=== PATIENT | male | born 1975 | race American Indian/Alaskan Native ===

== ENCOUNTER 2020-11-12 08:39 | Emergency (ER) | payer OTHER ==
[2020-11-12 08:48] VITALS: BP 127/78
[2020-11-12] MEDS ORDERED: diazePAM 10 MG/2 ML SYRINGE IV ONE (10:28)
[2020-11-12] MEDS ORDERED: ONDANSETRON 4 MG/2 ML INJ IV ONE (10:28)
[2020-11-12] MEDS ORDERED: SODIUM CHLORIDE 0.9% 1000 ML 1,000 ML IV ONE (10:28)
--- NOTE | 2020-11-12 10:38 | Emergency Department Report ---
ED General Adult HPI - General Chief complaint: Nausea/Vomiting/Diarrhea Stated complaint: NAUSEA/VOMITING/DIZZY Time Seen by Provider: 11/12/20 09:39 Source: patient Mode of arrival: Wheelchair Limitations: No Limitations - History of Present Illness Initial comments: This is a pleasant 45-year-old male with past medical history of hypertension, hyperlipidemia and diabetes who presents to the emergency department the chief complaint of vertigo. Patient reports the vertigo started suddenly at 11:30 PM. He reports it is much worse when he lies flat but little bit better when he lays to the left. He reports any movement aggravates his symptoms. He reports he feels as if his equilibrium is off. Ports one episode nausea and vomiting last night. [facility] in his lower back that it causes pain and weakness in the left leg and numbness in the left foot. He states over the last few months he has noticed he started to be weak in the left arm as well. He states he has had vertigo in the past but had resolved spontaneously. This episode is much worse. He states anytime he opens his eyes he gets really nauseous. -: Sudden Severity scale (0 -10): 0 - Related Data Home Medications Medication Instructions Recorded Confirmed Last Taken lisinopriL [Zestril TAB] 10 mg PO DAILY 03/21/13 03/21/13 Unknown metFORMIN [Glucophage] 500 mg PO BID 03/21/13 03/21/13 Unknown Previous Rx's Medication Instructions Recorded Last Taken Type Meclizine [Antivert] 25 mg PO TID PRN #30 tablet 11/12/20 Unknown Rx Ondansetron [Zofran Odt] 4 mg PO Q8HR #30 tab.rapdis 11/12/20 Unknown Rx Allergies Allergy/AdvReac Type Severity Reaction Status Date / Time No Known Allergies Allergy Unverified 03/21/13 17:12 ED Review of Systems ROS: Stated complaint: NAUSEA/VOMITING/DIZZY Other details as noted in HPI Comment: All other systems reviewed and negative Constitutional: denies: chills, fever Eyes: denies: eye pain, eye discharge, vision change ENT: denies: ear pain, throat pain Respiratory: denies: cough, shortness of breath, wheezing Cardiovascular: denies: chest pain, palpitations Endocrine: no symptoms reported Gastrointestinal: denies: abdominal pain, nausea, diarrhea Genitourinary: denies: urgency, dysuria Musculoskeletal: denies: back pain, joint swelling, arthralgia Skin: denies: rash, lesions Neurological: as per HPI, weakness, abnormal gait, vertigo. denies: headache, paresthesias Psychiatric: denies: anxiety, depression Hematological/Lymphatic: denies: easy bleeding, easy bruising ED Past Medical Hx - Past Medical History Hx Hypertension: Yes Hx Heart Attack/AMI: Yes (1994) Hx Congestive Heart Failure: No Hx Diabetes: Yes Hx Arthritis: Yes Hx Kidney Stones: Yes Hx Asthma: No Hx COPD: No Additional medical history: Cholesterol, obesity - Surgical History Past Surgical History?: No Additional Surgical History: [place] teeth pulled - Social History Smoking Status: Never Smoker - Medications Home Medications: Home Medications Medication Instructions Recorded Confirmed Last Taken Type lisinopriL [Zestril TAB] 10 mg PO DAILY 03/21/13 03/21/13 Unknown History metFORMIN [Glucophage] 500 mg PO BID 03/21/13 03/21/13 Unknown History Meclizine [Antivert] 25 mg PO TID PRN #30 tablet 11/12/20 Unknown Rx Ondansetron [Zofran Odt] 4 mg PO Q8HR #30 tab.rapdis 11/12/20 Unknown Rx ED Physical Exam - General Limitations: No Limitations General appearance: alert, in distress - Head Head exam: Present: atraumatic, normocephalic, normal inspection - Eye Eye exam: Present: normal appearance, nystagmus (Horizontal nystagmus when looking to the left none to the right) Pupils: Present: normal accommodation - ENT ENT exam: Present: normal exam, normal orophraynx, mucous membranes moist - Neck Neck exam: Present: normal inspection, full ROM, other (No carotid bruits). Absent: tenderness, meningismus - Respiratory Respiratory exam: Present: normal lung sounds bilaterally. Absent: respiratory distress, wheezes, rales, rhonchi, stridor - Cardiovascular Cardiovascular Exam: Present: regular rate, normal rhythm, normal heart sounds. Absent: systolic murmur, diastolic murmur, rubs, gallop - GI/Abdominal GI/Abdominal exam: Present: soft, normal bowel sounds. Absent: distended, tenderness, guarding, rebound, rigid - Rectal Rectal exam: Present: deferred - Extremities Exam Extremities exam: Present: normal inspection, full ROM. Absent: tenderness, calf tenderness - Back Exam Back exam: Present: normal inspection, full ROM. Absent: tenderness, CVA tenderness (R), CVA tenderness (L) - Neurological Exam Neurological exam: Present: alert, oriented X3, abnormal gait, motor sensory deficit (There is decreased sensation to the left leg and left arm to light touch, there is weakness of the left leg and a slight drift to the left arm. There is ataxia with ojbeyq-bp-lbqx on the left. Unable to zbim-ia-zlxq on the left but dsep-pl-cdkn on the right and yuksfg-cq-cnxn on the right is maximo), other (Speech is normal) - Psychiatric Psychiatric exam: Present: normal affect, normal mood - Skin Skin exam: Present: warm, dry, intact, normal color. Absent: rash ED Course Vital Signs 11/12/20 08:42 Temperature 97.0 F L Pulse Rate 82 Respiratory 18 Rate Blood Pressure 127/78 [Left] O2 Sat by Pulse 97 Oximetry - Reevaluation(s) Reevaluation #1: 11/12/20 10:38 Patient symptoms are highly concerning for an old stroke with the new weakness in the left arm months ago and the worsening weakness in the left leg. The new onset of vertigo at 11:30 PM being the last known well time. Patient is not a TPA candidate. His NIH stroke scale is a 4. CT, CTA and stroke work-up was ordered. If negative patient will be admitted with aspirin and neurology consult. 11/12/20 10:39 - Consultations Consultation #1: 11/12/20 10:34 Spoke with attending who recommended calling code stroke since we are still in the 24-hour interventional window. 11/12/20 14:[address] Warren ([facility]) HE agreed to come evaluate the patient at bedside. Consultation #2: 11/12/20 16:17 Dr. Warren came down and evaluated the patient at bedside and thinks the patient is safe to go home with an outpatient MRI and work-up by neurology. He suspects that this may be more of a peripheral vertigo and recommended vestibular rehab and meclizine. ED Medical Decision Making - Lab Data Result diagrams: 11/12/20 12:40 11/12/20 12:40 Lab Results 11/12/20 11/12/20 11/12/20 Range/Units 12:40 12:40 12:40 WBC 8.2 (4.5-11.0) K/mm3 RBC 4.63 (3.65-5.03) M/mm3 Hgb 13.8 (11.8-15.2) gm/dl Hct 41.0 (35.5-45.6) % MCV 88 (84-94) fl MCH 30 (28-32) pg MCHC 34 (32-34) % RDW 15.9 H (13.2-15.2) % Plt Count 347 (140-440) K/mm3 Lymph % (Auto) 30.0 (13.4-35.0) % [place] % (Auto) 8.0 H (0.0-7.3) % Eos % (Auto) 1.1 (0.0-4.3) % Baso % (Auto) 0.5 (0.0-1.8) % Lymph # (Auto) 2.5 (1.2-5.4) K/mm3 [place] # (Auto) 0.7 (0.0-0.8) K/mm3 Eos # (Auto) 0.1 (0.0-0.4) K/mm3 Baso # (Auto) 0.0 (0.0-0.1) K/mm3 Seg Neutrophils % 60.4 (40.0-70.0) % Seg Neutrophils # 5.0 (1.8-7.7) K/mm3 PT 13.6 (12.2-14.9) Sec. INR 0.99 (0.87-1.13) APTT 32.6 (24.2-36.6) Sec. Thrombin Time 16.0 (15.1-19.6) Sec. Sodium 137 (137-145) mmol/L Potassium 4.3 (3.6-5.0) mmol/L Chloride 101.3 (98-107) mmol/L Carbon Dioxide 29 (22-30) mmol/L Anion Gap 11 mmol/L BUN 14 (9-20) mg/dL Creatinine 0.7 L (0.8-1.3) mg/dL Estimated GFR > 60 ml/min BUN/Creatinine Ratio 20 % Glucose 89 (75-100) mg/dL Calcium 9.1 (8.4-10.2) mg/dL Total Bilirubin 1.20 (0.1-1.2) mg/dL AST 15 (5-40) units/L ALT 7 (7-56) units/L Alkaline Phosphatase 80 (35-129) units/L Total Creatine Kinase (55-170) units/L CK-MB (CK-2) (0.0-4.0) ng/mL CK-MB (CK-2) Rel Index (0-4) Troponin T (0.00-0.029) ng/mL Total Protein 7.0 (6.3-8.2) g/dL Albumin 3.6 L (3.9-5) g/dL Albumin/Globulin Ratio 1.1 % /09/27 Range/Units 12:40 WBC (4.5-11.0) K/mm3 RBC (3.65-5.03) M/mm3 Hgb (11.8-15.2) gm/dl Hct (35.5-45.6) % MCV (84-94) fl MCH (28-32) pg MCHC (32-34) % RDW (13.2-15.2) % Plt Count (140-440) K/mm3 Lymph % (Auto) (13.4-35.0) % [place] % (Auto) (0.0-7.3) % Eos % (Auto) (0.0-4.3) % Baso % (Auto) (0.0-1.8) % Lymph # (Auto) (1.2-5.4) K/mm3 [place] # (Auto) (0.0-0.8) K/mm3 Eos # (Auto) (0.0-0.4) K/mm3 Baso # (Auto) (0.0-0.1) K/mm3 Seg Neutrophils % (40.0-70.0) % Seg Neutrophils # (1.8-7.7) K/mm3 PT (12.2-14.9) Sec. INR (0.87-1.13) APTT (24.2-36.6) Sec. Thrombin Time (15.1-19.6) Sec. Sodium (137-145) mmol/L Potassium (3.6-5.0) mmol/L Chloride (98-107) mmol/L Carbon Dioxide (22-30) mmol/L Anion Gap mmol/L BUN (9-20) mg/dL Creatinine (0.8-1.3) mg/dL Estimated GFR ml/min BUN/Creatinine Ratio % Glucose (75-100) mg/dL Calcium (8.4-10.2) mg/dL Total Bilirubin (0.1-1.2) mg/dL AST (5-40) units/L ALT (7-56) units/L Alkaline Phosphatase (35-129) units/L Total Creatine Kinase 207 H (55-170) units/L CK-MB (CK-2) 4.8 H (0.0-4.0) ng/mL CK-MB (CK-2) Rel Index 2.3 (0-4) Troponin T 0.021 (0.00-0.029) ng/mL Total Protein (6.3-8.2) g/dL Albumin (3.9-5) g/dL Albumin/Globulin Ratio % - Radiology Data Radiology results: report reviewed, image reviewed . CT head/brain wo con INDICATION: vertigo, left arm and left leg weakness.. TECHNIQUE: All CT scans at this location are performed using CT dose reduction for ALARA by means of automated exposure control. COMPARISON: None available. FINDINGS: There is no evidence of hemorrhage, hydrocephalus, brain edema, or mass effect/mass lesion. There is overall normal brain formation and brain volume for the patient's age. Ventricular and cisternal/sulcal size is normal for age. IMPRESSION: 1. No acute intracranial abnormality identified. COMMUNICATION: Time of Communication (TITLE ABSTRACTOR/CDT): 10:22 AM Licensed Practitioner Receiving Report: Dr. Mancilla Signer Name: Yovani Ortega MD Signed: 11/12/2020 11:22 AM Workstation Name: [id number] CT angio neck INDICATION / CLINICAL INFORMATION: 45 years Male; stroke sx, vertigo, weakness. TECHNIQUE: Thin cut axial images obtained through the head during IV bolus contrast administration. Sagittal, coronal, and 3 plane MIP reconstructions performed by the technologist. NASCET type criteria used evaluate stenoses. All CT scans at this location are performed using CT dose reduction for ALARA by means of automated exposure control. COMPARISON: None. FINDINGS: CAROTID ARTERIES: The motion and beam hardening degrade the image quality. There appears be mild plaque involving the right carotid bifurcation. However, there is no significant stenosis involving cervical carotid arteries by NASCET criteria. 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 However, there is no significant focal stenosis involving vertebral arteries. ARCH: The arch of vessels are unremarkable without significant stenosis. ADDITIONAL FINDINGS: Remainder of the surrounding soft tissues are grossly normal. IMPRESSION: There is no CTA evidence of significant stenosis involving cervical carotid or vertebral arteries by NASCET criteria. Signer Name: Shashank Grace MD Signed: 11/12/2020 1:56 PM Workstation Name: [id number] Transcribed By: MR Dictated By: Shashank Grace MD Electronically Authenticated By: Shashank Grace MD Signed Date/Time: 11/12/20 1356 cc: Mahi Garcia MD Fluoro Time In Minutes: CHEST 1 VIEW 11/12/2020 11:59 AM INDICATION / CLINICAL INFORMATION: dyspnea. COMPARISON: None available. FINDINGS: SUPPORT DEVICES: None. HEART / MEDIASTINUM: No significant abnormality. LUNGS / PLEURA: No significant pulmonary or pleural abnormality. No pneumothorax. ADDITIONAL FINDINGS: No significant additional findings. IMPRESSION: 1. No acute findings. Signer Name: Yovani Ortega MD Signed: 11/12/2020 12:46 PM Workstation Name: [id number] CT angio head INDICATION / CLINICAL INFORMATION: 45 years Male; stroke sx. TECHNIQUE: Thin cut axial images obtained through the head during IV bolus contrast administration. Sagittal, coronal, and 3 plane MIP reconstructions performed by the technologist. NASCET type criteria used evaluate stenoses. Automated exposure control utilized for radiation reduction purposes. COMPARISON: None available. FINDINGS: INTERNAL CAROTID ARTERIES: There is no significant focal stenosis involving distal internal carotid arteries by NASCET criteria. 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 There is no significant focal stenosis involving the basilar artery at. There is note of a developmental hypoplasia of the P1 segments of bilaterally. CEREBRAL ARTERIES: There is no significant focal stenosis involving the proximal cerebral arteries or adjacent segments. ANEURYSM: There is relative prominence of the right anterior communicating artery. This finding demonstrates a somewhat triangular configuration with central lucency, best seen on the coronal reconstructed images and would appear most consistent with developmental fenestration. Otherwise, there is no clear CTA evidence of intracranial aneurysm. ADDITIONAL FINDINGS: Remainder of the surrounding soft tissues are grossly normal. IMPRESSION: There is no significant focal stenosis involving the intracranial vessels or evidence of large vessel occlusion. 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 Signer Name: Shashank Grace MD Signed: 11/12/2020 1:40 PM Workstation Name: [id number] Transcribed By: MR Dictated By: Shashank Grace MD Electronically Authenticated By: Shashank Grace MD Signed Date/Time: 11/12/20 1340 - Medical Decision Making Patient is feeling much better after the Valium. His CT of his head without contrast was unremarkable. CTA of the head and neck showed some developmental findings but no acute findings or flow-limiting stenosis. He is nontoxic and in no acute distress. He is ambulatory with a steady gait. He is no longer showing any signs of ataxia. He is already on atorvastatin and I recommended him taking a full dose of aspirin daily. He was educated that it is very possible he could have had a cerebellar stroke but at this time the treatment would be aspirin and outpatient follow-up for MRI. He was agreeable to this plan and felt comfortable going home. Observation in the hospital was offered to him however he felt comfortable going home. He was instructed to return to the emergency department if he develops any changing or worsening symptoms. He verbalized understanding of the diagnosis, treatment plan and follow-up instructions. - Differential Diagnosis CVA, peripheral vertigo, vestibular neuritis Critical care attestation.: If time is entered above; I have spent that time in minutes in the direct care of this critically ill patient, excluding procedure time. ED Disposition Clinical Impression: Vertigo, Left arm weakness Disposition: DC-01 TO HOME OR SELFCARE Is pt being admited?: No Condition: Stable Instructions: How to Perform the [place] Maneuver, Dizziness Prescriptions: Meclizine [Antivert] 25 mg PO TID PRN #30 tablet PRN Reason: Vertigo Ondansetron [Zofran Odt] 4 mg PO Q8HR #30 tab.rapdis Referrals: PRIMARY CARE, [Primary Care Provider] - 3-5 Days Forms: Work/School Release Form(ED) Time of Disposition: 16:20 - Assessment Assessment Interval: Baseline - Level of Consciousness 1a. Level of Consciousness: alert/keenly responsive - LOC Questions 1b. LOC Questions: answers both correctly - LOC Command 1c. LOC Commands: performs tasks correctly - Best Gaze 2. Best Gaze: normal - Visual 3. Visual: no visual loss - Facial Palsy 4. Facial Palsy: normal symmetrical movement - Motor Arm 5a. Motor Arm Left: drift 5b. Motor Arm Right: no drift - Motor Leg 6a. Motor Leg Left: drift 6b. Motor Leg Right: no drift - Limb Ataxia 7. Limb Ataxia: present 1 limb - Sensory 8. Sensory: mild/moderate sensory loss - Best Language 9. Best Language: no aphasia - Dysarthria 10. Dysarthria: normal - Extinction and Inattention 11. Extinction/Inattention: no abnormality - Scoring Total Score: 4 Stroke Severity: Minor Stroke
--- NOTE | 2020-11-12 10:52 | Consultation ---
History of Present Illness Consult date: 11/12/20 Medications and Allergies Allergies Allergy/AdvReac Type Severity Reaction Status Date / Time No Known Allergies Allergy Unverified 03/21/13 17:12 Home Medications Medication Instructions Recorded Confirmed Last Taken Type lisinopriL [Zestril TAB] 10 mg PO DAILY 03/21/13 03/21/13 Unknown History metFORMIN [Glucophage] 500 mg PO BID 03/21/13 03/21/13 Unknown History Active Meds: Active Medications Sodium Chloride (Nacl 0.9% 1000 Ml) 1,000 mls @ 999 mls/hr IV BOLUS ONE Stop: 11/12/20 11:28 Physical Examination - Vital Signs Vital Signs: Vital Signs Temp Pulse Resp BP Pulse Ox 97.0 F L 82 18 127/78 97 11/12/20 08:42 11/12/20 08:42 11/12/20 08:42 11/12/20 08:42 11/12/20 08:42 Assessment and Plan [facility] Consult Note # Demographics Consult Type: Acute Stroke Level 2 (4.5-24 hrs) Patient Location: Emergency Room First Name: michel Last Name: chelo Date of : 1975 Age: 45 Gender: Male Time of Initial Page ( Time): 11/12/2020, 10:40 Time of Return Call ( Time): 11/12/2020, 10:40 # HPI Handedness: Right History: 45M says dizziness and nausea last night, continued this AM. When he lays on back room spins, on side better. Standing is bad also. Leaning to right. Similar in the past, months ago was last episode. Duration longer this time. No headache. No double vision, feels slightly weak on left arm. # Scores Time of exam and NIHSS ( Time): 11/12/2020, 10:47 Level of Consciousness 1a: [0] = Alert; keenly responsive LOC Questions 1b: [0] = Answers both questions correctly LOC Commands 1c: [0] = Performs both tasks correctly Best Gaze 2: [0] = Normal Visual 3: [0] = No visual loss Facial Palsy 4: [0] = Normal symmetrical movements Motor Arm Left 5a: [0] = No drift Motor Arm Right 5b: [0] = No drift Motor Leg Left 6a: [0] = No drift Motor Leg Right 6b: [0] = No drift Limb Ataxia 7: [0] = Absent Sensory 8: [1] = Hwvw-tn-zqawbbyp sensory loss Best Language 9: [0] = No aphasia Dysarthria 10: [0] = Normal Extinction and Inattention 11: [0] = No abnormality NIHSS Total: 1 # PMH-FH-SH Past Medical History: 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 # Assessment Impression: Ischemic Stroke (Acute) versus mimic, the left arm weakness makes stroke a possibility, though if imaging excludes stroke this could be peripheral vertigo with other etiology of left side symptoms, complex migraine would be one unifying diagnosis though headache is not prominent. # Plan Thrombolytic/Intervention: NOT IV Thrombolysis or IA Intervention candidate Thrombolytic Exclusion (< 3 hour window): time of onset unclear Thrombolytic Exclusion: > 4.5 hours Intraarterial Exclusion: pending CTA head/neck Imaging: (urgency: STAT): CT Angiogram Head and CT Angiogram Neck Imaging: (urgency: routine): MRI Brain without contrast (however if patient improves and prefers to continue evaluation as outpatient, that would also be reasoanble) Other: telemetry monitoring I have discussed my recommendations with the referring provider Disposition: observation # Logistics Telemedicine: Interactive 2 way audio and visual telecommunication technology was utilized during this visit
--- NOTE | 2020-11-12 11:32 | Cat Scan Report ---
. CT head/brain wo con INDICATION: vertigo, left arm and left leg weakness.. TECHNIQUE: All CT scans at this location are performed using CT dose reduction for ALARA by means of automated e xposure control. COMPARISON: None available. FINDINGS: There is no evidence of hemorrhage, hydrocephalus, brain edema, or mass effect/mass lesion. There is overall normal brain formation and brain volume for the patient's age. Ventricular and cisternal/sulc al size is normal for age. IMPRESSION: 1. No acute intracranial abnormality identified. COMMUNICATION: Time of Communication (INTERACTIVE ACCOUNT MANAGER/CDT): 10:22 AM Licensed Practitioner Receiving Report: Dr. Mancilla Signer Name: Yovani Ortega MD Signed: 11/12/2020 11:22 AM Workstation Name: [id number]
--- NOTE | 2020-11-12 12:51 | XRay Report ---
CHEST 1 VIEW 11/12/2020 11:59 AM INDICATION / CLINICAL INFORMATION: dyspnea. COMPARISON: None available. FINDINGS: SUPPORT DEVICES: None. HEART / MEDIASTINUM: No significant abnormality. LUNGS / PLEURA: No significant pulmonary or pleural abnormality. No pneumothorax. ADDITIONAL FINDINGS: No significant additional findings. IMPRESSION: 1. No acute findings. Signer Name: Yovani Ortega MD Signed: 11/12/2020 12:46 PM Workstation Name: [id number]
[2020-11-12 13:16] LABS: Basophils % (Auto) 0.5 % (0.0-1.8); Eosinophils # (Auto) 0.1 K/mm3 (0.0-0.4); Eosinophils % (Auto) 1.1 % (0.0-4.3); Hemoglobin 13.8 gm/dl (11.8-15.2); Lymphocytes # (Auto) 2.5 K/mm3 (1.2-5.4); Mean Corpuscular HGB Conc 34 % (32-34); Mean Corpuscular Volume 88 fl (84-94); Monocytes # (Auto) 0.7 K/mm3 (0.0-0.8); Platelet Count 347 K/mm3 (140-440); Red Blood Count 4.63 M/mm3 (3.65-5.03); Red Cell Distribution Width 15.9 % (13.2-15.2)
[2020-11-12 13:31] LABS: Alanine Aminotransferase 7 units/L (7-56); Albumin 3.6 g/dL (3.9-5); Blood Urea Nitrogen 14 mg/dL (9-20); Calcium 9.1 mg/dL (8.4-10.2); Hemolysis Index 4
[2020-11-12 13:40] LABS: INR 0.99 (0.87-1.13)
[2020-11-12 13:41] LABS: BUN/Creatinine Ratio 20; Partial Thromboplastin Time 32.6 Sec. (24.2-36.6)
--- NOTE | 2020-11-12 13:45 | Cat Scan Report ---
CT angio head INDICATION / CLINICAL INFORMATION: 45 years Male; stroke sx. TECHNIQUE: Thin cut axial images obtained through the head during IV bolus contrast administration. S agittal, coronal, and 3 plane MIP reconstructions performed by the technologist. NASCET type criteria used evaluate stenoses. Automated exposure control utilized for radiation reduction purposes. COMPARISON: None available. FINDINGS: INTERNAL CAROTID ARTERIES: There is no significant focal stenosis involving distal internal carotid a rteries by NASCET criteria. 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 There is no significant focal stenosis involving the basilar artery at. There is note of a developmental hy poplasia of the P1 segments of bilaterally. CEREBRAL ARTERIES: There is no significant focal stenosis involving the proximal cerebral arteries or adjacent segments. ANEURYSM: There is relative prominence of the right anterior communicating artery. This finding demon strates a somewhat triangular configuration with central lucency, best seen on the coronal reconstruc bennie images and would appear most consistent with developmental fenestration. Otherwise, there is no c lear CTA evidence of intracranial aneurysm. ADDITIONAL FINDINGS: Remainder of the surrounding soft tissues are grossly normal. IMPRESSION: There is no significant focal stenosis involving the intracranial vessels or evidence of large vessel occlusion. The findings appear most consistent with developmental fenestration involving the right anterior comm unicating artery as detailed above. 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 Signer Name: Shashank Grace MD Signed: 11/12/2020 1:40 PM Workstation Name: [id number]
--- NOTE | 2020-11-12 14:00 | Cat Scan Report ---
CT angio neck INDICATION / CLINICAL INFORMATION: 45 years Male; stroke sx, vertigo, weakness. TECHNIQUE: Thin cut axial images obtained through the head during IV bolus contrast administration. S agittal, coronal, and 3 plane MIP reconstructions performed by the technologist. NASCET type criteria used evaluate stenoses. All CT scans at this location are performed using CT dose reduction for ALAR A by means of automated exposure control. COMPARISON: None. FINDINGS: CAROTID ARTERIES: The motion and beam hardening degrade the image quality. There appears be mild plaq ue involving the right carotid bifurcation. However, there is no significant stenosis involving cervi jessica carotid arteries by NASCET criteria. 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 However, there is no significant focal stenosis involving vertebral arteries. ARCH: The arch of vessels are unremarkable without significant stenosis. ADDITIONAL FINDINGS: Remainder of the surrounding soft tissues are grossly normal. IMPRESSION: There is no CTA evidence of significant stenosis involving cervical carotid or vertebral arteries by NASCET criteria. Signer Name: Shashank Grace MD Signed: 11/12/2020 1:56 PM Workstation Name: [id number]
[2020-11-12] MEDS ORDERED: ASPIRIN 325 MG TAB PO ONE (14:10)
[2020-11-12 14:30] LABS: Creatine Kinase MB 4.8 ng/mL (0.0-4.0)
== END 2020-11-12 16:30 | disposition home or self-care (01) ==
LOC: ED 08:39
DX: R53.1 Weakness (principal); I10 Essential (primary) hypertension; E11.8 Type 2 diabetes mellitus with unspecified complications; M19.90 Unspecified osteoarthritis, unspecified site; Z87.442 Personal history of urinary calculi; E66.8 Other obesity; Z98.890 Other specified postprocedural states
CPT/HCPCS: 36415; 70450; 70496; 70498; 71045; 80053; 82550; 82553; 84484; 85025; 85610; 85670; 85730; 96361; 96374; 96375; 99284; J2405; J3360; J7030; Q9967